=== PATIENT | male | born 1945 | race Caucasian/White ===

== ENCOUNTER 2021-05-02 07:25 | Day surgery (SDC) | payer OTHER ==
[2021-05-02] MEDS ORDERED: Ringers Lactate 1,000 ML IV ONE (07:33)
[2021-05-02] MEDS ORDERED: propofoL 200 MG/20 ML VIAL IV ONE (07:49)
[2021-05-02] MEDS ORDERED: LIDOCAINE 1% MPF 30 ML VIAL ONE (08:11)
--- NOTE | 2021-05-02 08:44 | ENDO RPT ---
[address], [address] COLONOSCOPY PROCEDURE REPORT EXAM DATE: 05/02/2021 PATIENT NAME: Tate Gentile MR #: [id number] BIRTHDATE: 1945 ATTENDING: Romaine Muñoz DR STATUS: outpatient ORGANIC PREPARATION ANALYST: Tresa Delatorre RN and Chrissy Soriano INDICATIONS: The patient is a 75 yr old Male here for a colonoscopy due to colon cancer screening PROCEDURE PERFORMED: Screening Colonoscopy MEDICATIONS: Per Anesthesia. ESTIMATED BLOOD LOSS: None CONSENT: The patient understands the risks and benefits of the procedure and understands that these risks include, but are not limited to: sedation, allergic reaction, infection, perforation and/or bleeding. Alternative means of evaluation and treatment include, among others: physical exam, x-rays, and/or surgical intervention. The patient elects to proceed with this endoscopic procedure. DESCRIPTION OF PROCEDURE: During intra-op preparation period all mechanical medical equipment was checked for proper function. Hand hygiene and appropriate measures for infection prevention was taken. Procedure, possible complications, alternatives including, but not limited to possibility of bleeding, perforation, tear, infection, sepsis, need for surgery, need for blood transfusion, were explained to the patient. After the risks, benefits and alternatives of the procedure were thoroughly explained, Informed consent was verified, confirmed and timeout was successfully executed by the treatment team. The patient was placed in the left lateral position. A digital rectal exam was performed and revealed internal hemorrhoids and A digital rectal exam was performed and revealed external hemorrhoids. After appropriate level of anesthesia, the scope was passed. The EC-[id number] ([id number]) endoscope was introduced through the anus and advanced to the splenic flexure. The quality of the prep was inadequate. The instrument was then slowly withdrawn as the colon was fully examined. Scope withdrawal time was 5 minutes. COLON FINDINGS: There was severe diverticulosis noted in the sigmoid colon with associated tortuosity. No bleeding was noted from the diverticulosis. Small internal and external hemorrhoids were found. Retroflexed views revealed no abnormalities. The scope was then completely withdrawn from the patient and the procedure terminated. ADVERSE EVENTS: There were no complications. IMPRESSIONS: 1. There was severe diverticulosis noted in the sigmoid colon 2. Small internal and external hemorrhoids RECOMMENDATIONS: Repeat Colonoscopy next week with 2 day prep due to inadequate prep RECALL: Return in 1 week(s) for Colonoscopy. Inadequate prep Romaine Muñoz DR eSigned: Romaine Muñoz DR 05/02/2021 8:44 AM cc: CPT CODES: ICD9 CODES:
[2021-05-02 09:58] VITALS: O2SAT 100
[2021-05-02 09:59] VITALS: BP 107/64; TEMP 98.3
== END 2021-05-02 09:32 | disposition home or self-care (01) ==
LOC: OR 07:25
PROVIDERS: ATTEND Surgery
PROC: 0DJD8ZZ Inspection of Lower Intestinal Tract, Via Natural or Artificial Opening Endoscopic (ICD-10-PCS; principal; 2021-05-02 08:30)
DX: Z12.11 Encounter for screening for malignant neoplasm of colon (principal); Z20.822 Contact with and (suspected) exposure to COVID-19; K64.8 Other hemorrhoids; K64.4 Residual hemorrhoidal skin tags; K57.30 Diverticulosis of large intestine without perforation or abscess without bleeding
CPT/HCPCS: U0003; J2704; J7120; G0104

== ENCOUNTER 2021-05-09 07:10 | Day surgery (SDC) | payer OTHER ==
[2021-05-09] MEDS: Ringers Lactate 1,000 ML IV ONE ×2 (07:32→08:27)
[2021-05-09] MEDS ORDERED: propofoL 200 MG/20 ML VIAL IV ONE ×3 (08:19→09:05)
[2021-05-09] MEDS ORDERED: GLYCOPYRROLATE 0.2 MG/ML SYR ONE (08:19)
[2021-05-09] MEDS ORDERED: LIDOCAINE 1% MPF 30 ML VIAL ONE (08:19)
--- NOTE | 2021-05-09 09:12 | ENDO RPT ---
[address], [address] COLONOSCOPY PROCEDURE REPORT EXAM DATE: 05/09/2021 PATIENT NAME: Tate Gentile MR #: [id number] BIRTHDATE: 1945 ATTENDING: Romaine Muñoz DR STATUS: outpatient PLUNKET NURSE: Chrissy Soriano and Joelle He RN INDICATIONS: The patient is a 75 yr old Male here for a colonoscopy due to colon cancer screening PROCEDURE PERFORMED: Colonoscopy with biopsy - cold polypectomy MEDICATIONS: Per Anesthesia. ESTIMATED BLOOD LOSS: None CONSENT: The patient understands the risks and benefits of the procedure and understands that these risks include, but are not limited to: sedation, allergic reaction, infection, perforation and/or bleeding. Alternative means of evaluation and treatment include, among others: physical exam, x-rays, and/or surgical intervention. The patient elects to proceed with this endoscopic procedure. DESCRIPTION OF PROCEDURE: During intra-op preparation period all mechanical medical equipment was checked for proper function. Hand hygiene and appropriate measures for infection prevention was taken. Procedure, possible complications, alternatives including, but not limited to possibility of bleeding, perforation, tear, infection, sepsis, need for surgery, need for blood transfusion, were explained to the patient. After the risks, benefits and alternatives of the procedure were thoroughly explained, Informed consent was verified, confirmed and timeout was successfully executed by the treatment team. The patient was placed in the left lateral position. A digital rectal exam was performed and revealed internal hemorrhoids. After appropriate level of anesthesia, the scope was passed. The EC-3890Li ([id number]) endoscope was introduced through the anus and advanced to the cecum, which was identified by both the appendix and ileocecal valve. The quality of the prep was fair. The instrument was then slowly withdrawn as the colon was fully examined. Scope withdrawal time was 12 minutes. COLON FINDINGS: Three smooth sessile polyps ranging between 3-5mm in size were found at the hepatic flexure, in the transverse colon, and sigmoid colon. A polypectomy was performed using snare cautery and with cold forceps. The resection was complete, the polyp tissue was completely retrieved and sent to histology. There was moderate diverticulosis noted in the sigmoid colon with associated tortuosity and angulation. No bleeding was noted from the diverticulosis. Retroflexed views revealed no abnormalities. The scope was then completely withdrawn from the patient and the procedure terminated. ADVERSE EVENTS: There were no complications. IMPRESSIONS: 1. Three sessile polyps ranging between 3-5mm in size were found at the hepatic flexure, in the transverse colon, and sigmoid colon; polypectomy was performed using snare cautery and with cold forceps 2. There was moderate diverticulosis noted in the sigmoid colon 3. Internal hemorrhoids RECOMMENDATIONS: 1. avoid NSAIDS for 2 weeks 2. await biopsy results 3. follow-up: office 2 week(s) 4. Monitor for any evidence of rectal bleeding. 5. yearly hemoquant 6. hemorrhoidal hygiene 7. yearly hemoccult starting in 4 years 8. low fiber / diverticular diet 9. increase dietary water RECALL: for Colonoscopy, pending biopsy results. Romaine Muñoz DR eSigned: Romaine Muñoz DR 05/09/2021 9:12 AM cc: CPT CODES: ICD9 CODES: PATIENT NAME: Tate Gentile MR#: [id number]
[2021-05-09] MEDS ORDERED: EPHEDRINE SULF 50 MG/ML VIAL ONE (09:13)
[2021-05-09 10:20] VITALS: BP 107/69; TEMP 97.1; O2SAT 97
== END 2021-05-09 10:05 | disposition home or self-care (01) ==
LOC: OR 07:10
PROVIDERS: ATTEND Surgery
PROC: 0DBN8ZX Excision of Sigmoid Colon, Via Natural or Artificial Opening Endoscopic, Diagnostic (ICD-10-PCS; 2021-05-09)
PROC: 0DBL8ZX Excision of Transverse Colon, Via Natural or Artificial Opening Endoscopic, Diagnostic (ICD-10-PCS; principal; 2021-05-09 08:30)
DX: Z12.11 Encounter for screening for malignant neoplasm of colon (principal); K63.5 Polyp of colon; K64.8 Other hemorrhoids; Z20.822 Contact with and (suspected) exposure to COVID-19
CPT/HCPCS: 88305; 45385; 45380; U0003; J2704 ×3; J7120

== ENCOUNTER 2023-06-01 09:13 | Day surgery (SDC) | payer OTHER ==
[2023-05-30 16:25] LABS: Absolute Basophils 0.1 K/uL (0-0.5); Absolute Eosinophils 0.2 K/uL (0-0.5); Absolute Lymphocytes (CBC) 1.2 K/uL (0.7-4.9); Absolute Monocytes 0.7 K/uL (0.1-1.3); Absolute Neutrophil 4.5 K/uL (1.8-8.0); Basophils % 0.8 % (0-1.3); Eosinophils % 2.7 % (0-4.4); Hematocrit 35.8 % (39.6-49.0); Hemoglobin 12.4 g/dL (13.6-17.9); Lymphocytes % 18.2 % (15.3-44.8); MCH 31.9 pg (27.0-35.0); MCHC 34.7 g/dL (32.0-36.0); MCV 91.9 fL (80-100); MPV 6.9 fL (7.6-11.3); Monocytes % 9.9 % (3.3-12.3); Neutrophils % 68.4 % (41.7-73.7); Platelets 231 thou/uL (152-406); Red Cell Distribution Width 12.5 % (12.1-15.2)
[2023-05-30 16:36] LABS: Anion Gap 4.7 mEq/L (5.0-15.0); Potassium 3.7 mEq/L (3.5-5.1)
[2023-06-01] MEDS: Ringers Lactate 1,000 ML IV ONE (09:48)
[2023-06-01 10:34] VITALS: O2SAT 98
[2023-06-01] MEDS ORDERED: LIDOCAINE 1% MPF 30 ML VIAL ONE (12:02)
[2023-06-01] MEDS ORDERED: propofoL 200 MG/20 ML VIAL IV ONE (12:02)
[2023-06-01 13:20] VITALS: BP 116/63; TEMP 96.9
== END 2023-06-01 13:16 | disposition home or self-care (01) ==
LOC: OR 09:13
PROVIDERS: ATTEND Surgery
PROC: 0DBP8ZX Excision of Rectum, Via Natural or Artificial Opening Endoscopic, Diagnostic (ICD-10-PCS; principal; 2023-06-01 10:45)
DX: Z12.11 Encounter for screening for malignant neoplasm of colon (principal); Z86.010 Personal history of colon polyps; K57.30 Diverticulosis of large intestine without perforation or abscess without bleeding; K64.8 Other hemorrhoids; K63.5 Polyp of colon
CPT/HCPCS: 93005; 85025; 80048; 36415; 88304; 45380; J2704; J2001; J7120; 88305